=== PATIENT | male | born 1985 | race Caucasian/White ===

== ENCOUNTER 2019-08-28 07:32 | Emergency (ER) | payer BC, OTHER ==
[~2019-08-28] VITALS: Ht 177.8 cm; Wt 77.6 kg
[2019-08-28] MEDS ORDERED: IMMODIUM (07:42)
[2019-08-28] MEDS ORDERED: NAPR220C14 PO (07:42)
[2019-08-28] MEDS ORDERED: ONDANSETRON 4MG/2ML VIAL (J2405) IV ONE (08:00)
[2019-08-28] MEDS ORDERED: MORPHINE 2 MG/ML 1ML VIAL (J2270) IV ONE (08:00)
[2019-08-28] MEDS ORDERED: NS 1,000 ML IV ONE (08:00)
[2019-08-28 08:34] LABS: BASO % 0.3 % (0.0-1.0); EOS % 0.5 % (0.0-3.0); HEMATOCRIT 46.2 % (42.0-52.0); HEMOGLOBIN 15.5 g/dl (13.5-17.5); LYMPH # 1.7 10^3/uL (1.5-5.0); LYMPH % 23.4 % (24.0-44.0); MEAN CORPUSCULAR HEMOGLOBIN 28.7 pg (27.0-33.0); MEAN CORPUSCULAR HGB CONC 33.5 g/dl (32.0-36.5); MEAN CORPUSCULAR VOLUME 85.6 fl (80.0-96.0); MONO # 0.6 10^3/uL (0.0-0.8); MONO % 8.2 % (0.0-5.0); NEUTROPHILS # 4.9 10^3/uL (1.5-8.5); NEUTROPHILS % 67.5 % (36.0-66.0); PLATELET COUNT, AUTOMATED 245 10^3/uL (150-450); WHITE BLOOD COUNT 7.3 10^3/uL (4.0-10.0)
[2019-08-28] MEDS ORDERED: ISOVUE-370 76% 100ML VIAL (Q9967) As Ordered ONE (08:38)
[2019-08-28 09:04] LABS: ALBUMIN 3.8 GM/DL (3.2-5.2); BILIRUBIN,DIRECT 0.1 MG/DL (0.0-0.2); BILIRUBIN,TOTAL 0.4 MG/DL (0.2-1.0); TOTAL PROTEIN 6.9 GM/DL (6.4-8.2)
--- NOTE | 2019-08-28 09:10 | REP ---
CT of the abdomen and pelvis with IV contrast, without bowel contrast for lower abdominal pain with fever and rectal bleeding, possibly diverticulitis. There are no comparisons. The visualized lung wynne are unremarkable. The hepatic parenchyma, gallbladder, pancreas and spleen are normal size and unremarkable. The adrenals are unremarkable. The kidneys are unremarkable. The abdominal aorta is unremarkable. There is no periaortic adenopathy or mass. There is wall thickening of the descending colon and sigmoid colon. This is compatible with colitis in the appropriate clinical setting. There are no diverticula. There is no bowel distension or obstruction. The mesentery is unremarkable. Pelvis: The appendix is unremarkable. There is no ascites. There is no adenopathy. The bladder is unremarkable. Impression: Wall thickening of the descending colon and sigmoid colon, compatible with colitis in the appropriate clinical setting. There is no ascites or adenopathy. There are no diverticula. Electronically Signed by Long Samano MD 08/28/2019 09:01 A
[2019-08-28] MEDS ORDERED: DICYCLOMINE 10 MG CAP PO ONE (11:45)
[2019-08-28] MEDS ORDERED: ONDA4TAB6 PO (12:25)
[2019-08-28] MEDS ORDERED: DICY20TA11 PO (12:25)
[2019-08-28 12:43] VITALS: BP 136/82
== END 2019-08-28 12:45 | disposition home or self-care (01) ==
LOC: M ED 07:32
DX: B96.21 Shiga toxin-producing Escherichia coli [E. coli] [STEC] O157 as the cause of diseases classified elsewhere (principal)
CPT/HCPCS: 36415; 74177; 80047; 80076; 81001; 83690; 85025; 87507; 96361; 96374; 96375; 99284; J2270; J2405; Q9967

== ENCOUNTER → 2019-09-20 | Outpatient (REF) | payer OTHER ==
[~2019-09-20] MED LIST: DICY20TA11 PO; IMMODIUM; NAPR220C14 PO; ONDA4TAB6 PO
[2019-09-20 14:41] LABS: CHOLESTEROL RISK RATIO 6.321 (<5); THYROID STIMULATING HORMONE 1.5 uIU/ML (0.358-3.740)
[2019-09-22 00:07] LABS: Lyme Disease IgG/IgM Antibodie <0.91 ISR (0.00-0.90); Lyme Disease IgM Ab Quantitati <0.80 index (0.00-0.79)
== END ==
LOC: M LAB REF 13:44
PROVIDERS: ATTEND Family Medicine Addiction Medicine
DX: Z00.00 Encounter for general adult medical examination without abnormal findings (principal); R53.83 Other fatigue

== ENCOUNTER → 2019-10-04 | Outpatient (REF) | payer OTHER ==
[2019-10-04 15:04] LABS: CHLAMYDIA DNA AMPLIFICATION NEGATIVE (NEGATIVE); GC DNA AMPLIFICATION NEGATIVE (NEGATIVE)
== END ==
LOC: M LAB REF 12:47
PROVIDERS: ATTEND Family Medicine Addiction Medicine
DX: Z20.2 Contact with and (suspected) exposure to infections with a predominantly sexual mode of transmission (principal)